=== PATIENT | female | born 1975 | race Caucasian/White ===

== ENCOUNTER 2024-06-16 16:09 | Emergency (ER) | payer MEDICAID ==
[~2024-06-16] VITALS: Ht 162.6 cm; Wt 70.0 kg
[2024-06-16 16:20] VITALS: TEMP 36.9; O2SAT 98
[2024-06-16 18:44] LABS: BASOPHILS % 0.7 % (0.0-2.0); EOSINOPHILS % 2.2 % (0.0-5.0); HEMATOCRIT. 40.8 % (36.0-48.0); LYMPHOCYTES % 35.6 % (20.0-50.0); MEAN CORPUSCULAR HGB CONC 34.3 g/dL (31.0-37.0); MEAN CORPUSCULAR VOLUME 87.6 fL (81.0-99.0); MEAN PLATELET VOLUME 8.3 fl (7.4-10.4); MONOCYTES % 6.1 % (2.0-8.0); NEUTROPHILS % 55.4 % (40.0-76.0); PLATELET 230 x1000/uL (130-400); RED BLOOD CELL COUNT 4.66 mill/uL (4.2-5.4); RED CELL DISTRIBUTION WIDTH 12.9 % (11.6-14.6); WHITE BLOOD COUNT 7.1 x1000/uL (4.5-11.0)
[2024-06-16] MEDS: IBUPROFEN 600MG TABLET PO STA (18:45)
[2024-06-16 18:52] LABS: CHLORIDE 109 mEq/L (98-107); SODIUM 144 mEq/L (136-145)
[2024-06-16 18:53] LABS: CALCIUM 9.3 mg/dL (8.7-10.4); CARBON DIOXIDE 28 mEq/L (21-32)
[2024-06-16 18:58] LABS: CREATININE 0.7 mg/dL (0.6-1.0); GLUCOSE 122 mg/dL (70-105); UREA NITROGEN BLOOD 16 mg/dL (9-23)
[2024-06-16 19:03] LABS: THYROID STIMULATING HORMONE 23.21 uIU/mL (0.55-4.78)
[2024-06-16 19:10] LABS: TROPONIN I HIGH SENSITIVITY < 4 ng/L (3.0-34)
[2024-06-16] MEDS ORDERED: NAPR220C61 MT (20:48)
[2024-06-16] MEDS ORDERED: CYCL5TAB3 MT (20:48)
[2024-06-16 21:22] VITALS: BP 131/64; PULSE 67; RESP 15; O2SAT 99
== END 2024-06-16 21:23 | disposition home or self-care (01) ==
LOC: ER 16:09
DX: M25.512 Pain in left shoulder (principal); R94.6 Abnormal results of thyroid function studies; E11.9 Type 2 diabetes mellitus without complications; M06.9 Rheumatoid arthritis, unspecified; Z79.899 Other long term (current) drug therapy; Z98.890 Other specified postprocedural states
CPT/HCPCS: 36415; 71045; 73030; 80048; 84443; 84484; 85025; 93005; 99285